=== PATIENT | male | born 1965 | race African-American/Black ===

== ENCOUNTER 2024-01-05 19:15 | Emergency (ER) | payer OTHER ==
[~2024-01-05] VITALS: Ht 170.2 cm; Wt 68.0 kg
[2024-01-05] MEDS ORDERED: KETOROLAC TROMETHAMINE 15 MG/ML VIAL ONE (20:10)
[2024-01-05] MEDS: KETOROLAC TROMETHAMINE 15 MG/ML VIAL IM ONE (20:15)
[2024-01-05] MEDS ORDERED: GABA-532 PO (20:48)
[2024-01-05] MEDS ORDERED: HYDR-4303 PO (20:48)
[2024-01-05 21:45] VITALS: BP 118/75; TEMP 98; O2SAT 100
== END 2024-01-05 21:46 | disposition home or self-care (01) ==
LOC: ER 19:25
DX: M54.2 Cervicalgia (principal); E11.9 Type 2 diabetes mellitus without complications; I10 Essential (primary) hypertension; Z88.8 Allergy status to other drugs, medicaments and biological substances; W18.39XA Other fall on same level, initial encounter; Y93.89 Activity, other specified; Y92.811 Bus as the place of occurrence of the external cause; Y99.8 Other external cause status
CPT/HCPCS: 99285; 72125; 96372; J1885